=== PATIENT | female | born 1995 | race Caucasian/White ===

== ENCOUNTER 2019-06-12 18:14 | Emergency (ER) | payer OTHER ==
--- NOTE | 2019-06-12 18:29 | ED Physician Documentation ---
Sore Throat/Dental Pain - HISTORIAN Historian: patient - HPI Chief Complaint: Dental Pain Additional Information: 23 year old female presents with c/o right upper jaw dental pain that began 2 days ago and right facial swelling that began yesterday. Patient rates her pain 01/04. She has not taken anything OTC for pain. She states that she is with a due date of 10/02/19. LNMP 12/26/18. She is a Grav. 2 para 1 Onset: days ago Context: Possible Infection Associated Symptoms: mild. denies: fever, chills Worsened By: denies: heat, cold - ROS CONST: no problems CVS/RESP: none GI/: denies: nausea, vomiting NEURO/PSYCH: none - PAST HX Past History: none Other History: none Immunizations: UTD Allergies/Adverse Reactions: Allergies Allergy/AdvReac Type Severity Reaction Status Date / Time No Known Allergies Allergy Verified 06/12/19 18:23 Home Medications: Ambulatory Orders Medication Instructions Recorded Amoxicillin [Trimox] 500 mg PO BID #20 capsule 06/12/19 No122/Iron/Folic Acid 1 tab PO DAILY 06/12/19 [ Multi Tablet] - SOCIAL HX Smoking History: less than 1 pack/day Alcohol Use: none Drug Use: none - FAMILY HX Family History: No - REVIEWED ASSESSMENTS Nursing Assessment Reviewed: Yes Vitals Reviewed: Yes Dental Pain Physical Exam - EXAM General Appearance: no acute distress, alert Head/Neck: head nml inspection, neck nml inspection Eyes: eyes nml inspection, PERRL Mouth/Throat: lips nml, gums nml, pharynx nml, voice nml, no air way problems, membranes nml, dental tenderness Ear/Nose: nml inspection Respiratory: breath sounds nml CVS: heart sounds nml Extremities: non-tender Skin: warm/dry, normal color Neuro/Psych: none Discharge Clincal Impression: Pain, dental Prescriptions: Amoxicillin [Trimox] 500 mg PO BID #20 capsule Referrals: Primary Doctor,No [Primary Care Provider] - 2 Days Additional Instructions: Take antibiotic as directed; Amoxil 500mg by mouth twice a day for 10 days Warm salt water gargles 4 times a day Tylenol as needed for discomfort Follow up with PCP next week for re-evaluation Condition: Good Disposition: 01 HOME, SELF-CARE Decision to Admit: NO Decision Time: 18:54
[2019-06-12 18:30] VITALS: BP 115/62
== END 2019-06-12 18:45 | disposition home or self-care (01) ==
LOC: ED 18:14
DX: K08.89 Other specified disorders of teeth and supporting structures (principal)
CPT/HCPCS: 99281; 99283